=== PATIENT | female | born 1990 | race African-American/Black ===

== ENCOUNTER 2020-06-15 14:56 | Outpatient (CLI) | payer OTHER ==
[2020-06-16 06:11] LABS: HEPATITIS A AB, IgM Negative (Negative); HEPATITIS B CORE AB, IgM Negative (Negative); HEPATITIS B SURFACE AG Negative (Negative)
[2020-06-16 06:51] LABS: FTA-Ab (T PALLIDUM) Non Reactive (NonReactive)
== END 2020-06-15 19:44 | disposition home or self-care (01) ==
LOC: SLB 14:56
PROVIDERS: ATTEND Specialist
DX: Z11.3 Encounter for screening for infections with a predominantly sexual mode of transmission (principal); Z72.89 Other problems related to lifestyle
CPT/HCPCS: 36415; 80074; 86592; 86780